=== PATIENT | male | born 2000 | race Hispanic/Latino ===

== ENCOUNTER 2020-11-05 11:42 | Observation (INO) | payer SELFPAY ==
[~2020-11-05] VITALS: Ht 165.1 cm; Wt 50.0 kg
[~2020-11-05 11:42] MED LIST: AMOXIL400 MG/5 M PO; TESSALON PER100 MG PO
--- NOTE | 2020-11-05 11:55 | NUR ---
PT TO ROOM VIA WHEELCHAIR FOR TRIAGE.
--- NOTE | 2020-11-05 12:00 | NUR ---
PATIENT ADVISED PLAN OF CARE,CALL TRENT GIVEN.
--- NOTE | 2020-11-05 12:34 | NUR ---
returned from ct,states his right testicle is hurting since the vomiting started. Dr. Mariama pete.
[2020-11-05 12:53] LABS: HEMATOCRIT 41.7 % (39.0-50.0); HEMOGLOBIN 14.6 g/dl (14.0-18.0); IMMATURE GRANULOCYTES 0.6 % (0.0-5.0); MEAN CELL VOLUME 87.6 fL CALC (80.0-100.0); MEAN CORPUSCULAR HGB 30.7 pG CALC (26.0-32.0); NEUT# 20.64 thou/uL (1.82-7.42); RED BLOOD COUNT 4.76 mill/uL (4.70-6.10); RED CELL DISTRI WIDTH 11.9 % (11.5-15.5)
--- NOTE | 2020-11-05 13:13 | NUR ---
brother at bedside. dr cordon in to discuss findings and POC.
--- NOTE | 2020-11-05 13:30 | NUR ---
OR TEAM PRESENT TO TAKE PATIENT TO OR. DR BUSTILLOS AT BEDSIDE TO EVALUATE. REPORT IN SBAR FORNAT TO PRITI DUNN.
--- NOTE | 2020-11-05 13:30 | NUR ---
REPORT TO MARCELAMED SURG NURSE IN SBAR FORMAT.
[2020-11-05 13:31] LABS: ALBUMIN 4.7 g/dL (3.2-5.0); ALKALINE PHOSPHATASE 62 u/l (38-126); ANION GAP 14 (6-22 (CALC)); BILIRUBIN, TOTAL 0.4 mg/dL (0.0-1.4); BUN 17 mg/dL (9-20); BUN/CREATININE RATIO 22 (12-20 (CALC)); CARBON DIOXIDE 24 mmol/l (22-30); CHLORIDE 103 mmol/l (95-108); CREATININE 0.7 mg/dL (0.7-1.3); GFR > 60 ML/MIN (>=60 (CALC)); GFR FOR AFR.AMER. > 60 ML/MIN (>=60 (CALC)); LIPASE 45 u/l (23-300); POTASSIUM 4.1 mmol/l (3.5-5.1); SGOT/AST 30 u/l (17-59); SODIUM 137 mmol/l (137-146); TOTAL PROTEIN 8.2 g/dL (6.3-8.2)
--- NOTE | 2020-11-05 13:34 | NUR ---
TO OR VIA STRETCHER. STABLE.
--- NOTE | 2020-11-05 13:40 | NUR ---
RECIEVED REPORT FROM SHAUN HUNG.
[2020-11-05] MEDS ORDERED: PERCOCET 5/325M1 TAB PO (14:50)
[2020-11-05 16:04] VITALS: BP 118/56
== END 2020-11-05 16:40 | disposition home or self-care (01) | DRG 352 ==
LOC: ED 11:42 → ED-I 12:50 → ED 13:04 → MS2 13:05
PROVIDERS: Family Medicine; ADMIT Surgery; ATTEND Surgery
PROC: 0YU50JZ Supplement Right Inguinal Region with Synthetic Substitute, Open Approach (ICD-10-PCS; principal; 2020-11-05)
DX: K40.30 Unilateral inguinal hernia, with obstruction, without gangrene, not specified as recurrent (principal); Z20.822 Contact with and (suspected) exposure to COVID-19
CPT/HCPCS: C9290; J0131

== ENCOUNTER 2021-06-13 23:17 | Emergency (ER) | payer SELFPAY ==
[~2021-06-13] VITALS: Ht 157.5 cm; Wt 49.0 kg
[~2021-06-13 23:17] MED LIST changes: +PERCOCET 5/325M1 TAB PO
[2021-06-13 23:40] VITALS: BP 117/63
[2021-06-14] MEDS ORDERED: PERCOCET 5/325M1 TAB PO (00:48)
[2021-06-14] MEDS ORDERED: AMOXICILLIN500 MG PO (00:48)
== END 2021-06-14 01:55 | disposition home or self-care (01) | DRG 153 ==
LOC: ED 23:17
DX: H66.93 Otitis media, unspecified, bilateral (principal)

== ENCOUNTER 2022-06-22 22:21 | Emergency (ER) | payer SELFPAY ==
[~2022-06-22] VITALS: Ht 157.5 cm; Wt 53.6 kg
[~2022-06-22 22:21] MED LIST changes: +AMOXICILLIN500 MG PO
[2022-06-22 22:50] VITALS: BP 136/76
[2022-06-22 23:01] VITALS: BP 112/56
[2022-06-22 23:15] VITALS: BP 105/54
[2022-06-22 23:45] VITALS: BP 124/72
[2022-06-23] VITALS: BP 103/45
[2022-06-23] LABS: URINE BILIRUBIN - DIPSTICK NEGATIVE (NEGATIVE); URINE BLOOD DIPSTICK NEGATIVE (NEGATIVE); URINE COLOR YELLOW; URINE GLUCOSE - DIPSTICK NEGATIVE (NEGATIVE); URINE KETONE NEGATIVE (NEGATIVE); URINE LEUK ESTERASE NEGATIVE (NEGATIVE); URINE NITRITE - DIPSTICK NEGATIVE (Negative); URINE PROTEIN - DIPSTICK NEGATIVE (NEG-TRACE)
[2022-06-23 00:02] LABS: HEMATOCRIT 39.3 % (39.0-50.0); IMMATURE GRANULOCYTES 0.5 % (0.0-5.0); MEAN CELL VOLUME 85.8 fL CALC (80.0-100.0); MEAN CORPUSCULAR HGB 30.6 pG CALC (26.0-32.0); MEAN CORPUSCULAR HGB CONC 35.6 g/dL CAL (32.0-36.0); NEUT# 4.29 thou/uL (1.82-7.42); RED BLOOD COUNT 4.58 mill/uL (4.70-6.10); RED CELL DISTRI WIDTH 11.7 % (11.5-15.5)
[2022-06-23 00:15] VITALS: BP 104/49
[2022-06-23 00:20] LABS: ALBUMIN 4.2 g/dL (3.2-5.0); ALKALINE PHOSPHATASE 54 u/l (38-126); ANION GAP 12 (6-22 (CALC)); BUN 12 mg/dL (9-20); BUN/CREATININE RATIO 17 (12-20 (CALC)); CARBON DIOXIDE 26 mmol/l (22-30); CHLORIDE 106 mmol/l (95-108); CREATININE 0.7 mg/dL (0.7-1.3); GFR FOR AFR.AMER. > 60 ML/MIN (>=60 (CALC)); GFR OTHER RACES > 60 ML/MIN (>=60 (CALC)); POTASSIUM 4.2 mmol/l (3.5-5.1); SGOT/AST 24 u/l (17-59); SODIUM 140 mmol/l (137-146); TOTAL PROTEIN 7.4 g/dL (6.3-8.2)
[2022-06-23 00:23] LABS: BILIRUBIN, TOTAL 0.2 mg/dL (0.0-1.4)
[2022-06-23 04:00] VITALS: BP 104/49
== END 2022-06-23 04:05 | disposition home or self-care (01) | DRG 395 ==
LOC: ED 22:21
PROVIDERS: Emergency Medicine
DX: K40.90 Unilateral inguinal hernia, without obstruction or gangrene, not specified as recurrent (principal)
CPT/HCPCS: Q9967

== ENCOUNTER 2023-12-15 07:04 | Day surgery (SDC) | payer SELFPAY ==
[~2023-12-15] VITALS: Ht 157.5 cm; Wt 51.3 kg
[~2023-12-15 07:04] MED LIST changes: +ADVIL200 MG PO
[2023-12-15] MEDS ORDERED: SODIUM CHLORIDE 0.9% 100 ML IV ONE (07:08)
[2023-12-15] MEDS ORDERED: ceFAZolin Sodium 2 GM/VIAL SDV ONE (07:08)
[2023-12-15] MEDS ORDERED: LACTATED RINGER'S 1,000 ML IV ONE ×2 (07:09→10:46)
[2023-12-15] MEDS ORDERED: BUPIVACAINE HCL 0.25% 25 MG/10 ML SDV ONE (08:00)
[2023-12-15] MEDS ORDERED: BUPIVACAINE 133 MG/10 ML VIAL IJ ONE (08:00)
[2023-12-15] MEDS ORDERED: SODIUM CHLORIDE 20 ML/VIAL SDV ONE (08:01)
[2023-12-15] MEDS ORDERED: PERCOCET 5/325M1 TAB PO (10:36)
[2023-12-15] MEDS ORDERED: SODIUM CHLORIDE 1,000 ML BTL IR ONE (11:37)
[2023-12-15] MEDS ORDERED: STERILE WATER FOR IRRIGATION 1,000 ML BTL IR ONE (11:37)
[2023-12-15 13:05] VITALS: BP 113/69
[2023-12-15] MEDS ORDERED: DEXAMETHASONE SODIUM PHOSPHATE PF 10 MG/ML SDV IV ONE (14:18)
[2023-12-15] MEDS ORDERED: MIDAZOLAM HCL 2 MG/2 ML VIAL IV ONE (14:18)
[2023-12-15] MEDS ORDERED: KETOROLAC TROMETHAMINE 30 MG/ML SDV IV ONE (14:18)
[2023-12-15] MEDS ORDERED: PROPOFOL 200 MG/20 ML VIAL IV ONE (14:18)
[2023-12-15] MEDS ORDERED: ONDANSETRON HCl 4 MG/2 ML SDV IV ONE (14:18)
[2023-12-15] MEDS ORDERED: LIDOCAINE HCL 2% 2ML SDV IV ONE (14:18)
[2023-12-15] MEDS ORDERED: LACTATED RINGER'S 1,000 ML BAG IV ONE (14:18)
[2023-12-15] MEDS ORDERED: ACETAMINOPHEN 1,000 MG/100 ML VIAL IV ONE (14:18)
== END 2023-12-15 12:55 | disposition home or self-care (01) | DRG 352 ==
LOC: ORM 07:04
PROVIDERS: ATTEND Surgery
PROC: 0YU60JZ Supplement Left Inguinal Region with Synthetic Substitute, Open Approach (ICD-10-PCS; principal; 2023-12-15)
DX: K40.90 Unilateral inguinal hernia, without obstruction or gangrene, not specified as recurrent (principal); D17.6 Benign lipomatous neoplasm of spermatic cord
CPT/HCPCS: C9290; J0131; J0690; J1100